=== PATIENT | male | born 1990 | race Caucasian/White ===

== ENCOUNTER 2017-02-11 10:58 | Emergency (ER) | payer BC ==
[~2017-02-11] VITALS: Ht 180.3 cm; Wt 102.0 kg
[~2017-02-11 10:58] MED LIST: OXYC1TAB3 PO
[2017-02-11 11:00] VITALS: TEMP 36.6; Ht 180.3 cm; Wt 102.0 kg
[2017-02-11] MEDS ORDERED: SODIUM CHLORIDE 0.9% 1000ML 1,000 ML IV STA (11:15)
[2017-02-11] MEDS ORDERED: AZITHROMYCIN IV 500 MG in DEXTROSE 5% 250ML 250 ML IV ONE (11:15)
[2017-02-11 11:43] VITALS: O2SAT 98
[2017-02-11 11:49] LABS: HEMATOCRIT 46.3 % (42-52); MEAN CELL VOLUME 84.2 fL (80-100); MEAN CORPUSCULAR HEMOGLOBIN 30.5 pg (25-34); MEAN CORPUSCULAR HGB CONC 36.3 g/dl (32-36); MEAN PLATELET VOLUME 10.7 fL (7.4-10.4); PLATELET COUNT 123 K/uL (130-400); WHITE BLOOD COUNT 7.09 K/uL (4.8-10.8)
[2017-02-11] MEDS ORDERED: LEVO-366 PO (11:51)
[2017-02-11] MEDS ORDERED: GUAISYP4 PO (11:51)
[2017-02-11 12:11] LABS: BASO % 0.7 %; BASO ABS # 0.05 K/uL (0-0.2); COMPLETE YES; IG% 0.1 %; LYMPH % 21.7 %; LYMPH ABS # 1.54 K/uL (1.2-3.4); MONO % 10.6 %; NEUT % 66.9 %
[2017-02-11 12:14] LABS: CREATININE 1.2 mg/dl (0.60-1.40); POTASSIUM 3.3 mmol/L (3.5-5.1)
--- NOTE | 2017-02-11 12:21 | DIAGNOSTIC IMAGING REPORT ---
CHEST 2 VIEWS ROUTINE CLINICAL HISTORY: cough, fever, recently diagnosed with pneumonia COMPARISON STUDY: No previous studies for comparison. FINDINGS: The heart is normal in size. There are nodular right upper lobe pulmonary airspace opacities, likely representing a pneumonia. Films subsequent to treatment are recommended in follow-up.[ No pleural effusions are visualized. IMPRESSION: Nodular right upper lobe pulmonary airspace opacities, likely representing a pneumonia. Films subsequent to treatment are recommended in follow-up. Electronically signed by: Fili Melvin M.D. 02/11/2017 12:20 PM Dictated Date/Time: 02/11/2017 12:19 PM
[2017-02-11] MEDS ORDERED: AZIT500T PO (14:11)
--- NOTE | 2017-02-11 14:12 | EMERGENCY ROOM VISIT NOTE ---
History First contact with patient: 11:08 Chief Complaint: RESPIRATORY PROBLEMS Stated Complaint: PNEUMONIA History of Present Illness The patient is a 26 year old male who presents to the Emergency Room with complaints of pneumonia. The patient states that he started with symptoms of high fever and cough one week ago. He denies any ear pain, sore throat or head congestion. He went to his family doctor on and was diagnosed with pneumonia he thinks they said it was in the right upper lobe. He was placed on Levaquin 500 milligrams daily. The patient has had 4 doses of the Levaquin and has not seen any improvement therefore he went to the [facility] walk-in clinic this morning. He was sent over here because they told him that his pulse ox was low at 77 and that his heart rate was a little fast. The patient denies any history of asthma or any chronic respiratory disease. The patient denies tobacco use. Review of Systems 10 system review was performed and was negative unless stated otherwise history of present illness. Past Medical/Surgical History No significant past medical history Social History Smoking Status: Never Smoker Alcohol Use: occasionally Drug Use: none Marital Status: Housing Status: lives with family Occupation Status: employed Current/Historical Medications Scheduled Levofloxacin (Levaquin), 500 MG PO DAILY Scheduled PRN Guaifenesin/Codeine (Robitussin-Ac Syrup), 10 ML PO Q4H PRN for Cough Allergies Coded Allergies: No Known Allergies (Unverified , 02/11/17) Physical Exam Vital Signs Date Time Temp Pulse Resp B/P (MAP) Pulse Ox O2 Delivery O2 Flow Rate FiO2 02/11/17 11:44 91 18 127/78 97 Room Air 02/11/17 11:43 98 Room Air 02/11/17 11:03 95 Room Air 02/11/17 11:00 36.6 107 18 118/73 95 Room Air Physical Exam PHYSICAL EXAM: Vital Signs were reviewed: Temperature 36.6, blood pressure 118/ 73, pulse 107, respiratory rate 18 Reviewed Nurse's notes and agree. Oxygen saturation is 95 % on room air which is normal . GENERAL: 26-year-old male appears in no acute distress. MENTAL STATUS: Alert, oriented, coherent. EARS: Canals clear. TMs good light reflex, no erythema or fluid level noted. NOSE: Nasal mucosa with moderate erythema engorgement. PHARYNX: No erythema, no edema noted. No exudate noted. Airway is adequate. NECK: Supple, non-tender. No lymphadenopathy noted. LUNGS: Clear to auscultation without wheezes rales or rhonchi. CARDIAC: Regular rate and rhythm without murmur. SKIN: No rashes noted. Medical Decision & Procedures ER Provider Diagnostic Interpretation: CHEST 2 VIEWS ROUTINE CLINICAL HISTORY: cough, fever, recently diagnosed with pneumonia COMPARISON STUDY: No previous studies for comparison. FINDINGS: The heart is normal in size. There are nodular right upper lobe pulmonary airspace opacities, likely representing a pneumonia. Films subsequent to treatment are recommended in follow-up.[ No pleural effusions are visualized. IMPRESSION: Nodular right upper lobe pulmonary airspace opacities, likely representing a pneumonia. Films subsequent to treatment are recommended in follow-up. Electronically signed by: Fili Melvin M.D. 02/11/2017 12:20 PM Laboratory Results 02/11/17 11:30 Red Blood Count 5.50, Mean Corpuscular Volume 84.2, Mean Corpuscular Hemoglobin 30.5, Mean Corpuscular Hemoglobin Concent 36.3, Mean Platelet Volume 10.7, Neutrophils (%) (Auto) 66.9, Lymphocytes (%) (Auto) 21.7, Monocytes (%) (Auto) 10.6, Eosinophils (%) (Auto) 0.0, Basophils (%) (Auto) 0.7, Neutrophils # (Auto ) 4.74, Lymphocytes # (Auto) 1.54, Monocytes # (Auto) 0.75, Eosinophils # (Auto ) 0.00, Basophils # (Auto) 0.05 02/11/17 11:30 Test 02/11/17 11:30 White Blood Count 7.09 K/uL (4.8-10.8) Red Blood Count 5.50 M/uL (4.7-6.1) Hemoglobin 16.8 g/dL (14.0-18.0) Hematocrit 46.3 % (42-52) Mean Corpuscular Volume 84.2 fL (80-100) Mean Corpuscular Hemoglobin 30.5 pg (25-34) Mean Corpuscular Hemoglobin Concent 36.3 g/dl (32-36) Platelet Count 123 K/uL (130-400) Mean Platelet Volume 10.7 fL (7.4-10.4) Neutrophils (%) (Auto) 66.9 % Lymphocytes (%) (Auto) 21.7 % Monocytes (%) (Auto) 10.6 % Eosinophils (%) (Auto) 0.0 % Basophils (%) (Auto) 0.7 % Neutrophils # (Auto) 4.74 K/uL (1.4-6.5) Lymphocytes # (Auto) 1.54 K/uL (1.2-3.4) Monocytes # (Auto) 0.75 K/uL (0.11-0.59) Eosinophils # (Auto) 0.00 K/uL (0-0.5) Basophils # (Auto) 0.05 K/uL (0-0.2) RDW Standard Deviation 39.0 fL (36.4-46.3) RDW Coefficient of Variation 12.6 % (11.5-14.5) Immature Granulocyte % (Auto) 0.1 % Immature Granulocyte # (Auto) 0.01 K/uL (0.00-0.02) Anion Gap 16.0 mmol/L (3-11) Est Creatinine Clear Calc Drug Dose 113.4 ml/min Estimated GFR () 96.1 Estimated GFR (Non- 83.0 BUN/Creatinine Ratio 15.0 (10-20) Calcium Level 9.0 mg/dl (8.5-10.1) Date/Time Source Procedure Growth Status 02/11/17 12:45 Stool C.difficile Toxin B Gene (PCR) - Final No C. difficile toxin B gene detected Complete Medications Administered Medications (Trade) Dose Ordered Sig/[place] Route Start Time Stop Time Status Last Admin Dose Admin Sodium Chloride 1,000 ml @ 999 mls/hr Q1H1M STAT IV 02/11/17 11:15 02/11/17 12:15 DC 02/11/17 11:42 999 MLS/HR Azithromycin 500 mg/Dextrose 255 ml @ 125 mls/hr ONE ONCE IV 02/11/17 11:15 02/11/17 13:17 DC 02/11/17 11:42 125 MLS/HR ED Course The patient was evaluated. The patient was placed on continuous pulse ox. IV access was obtained. The patient was given 1 L normal saline wide-open. CBC and differential, renal profile, blood cultures 2 were obtained. The patient was given Zithromax 500 mg IV. Chest x-ray was ordered and interpreted by the radiologist and myself as above with right upper lobe pneumonia. Labs are reviewed and were unremarkable. Blood cultures are pending. The patient then later told me that he had increased diarrhea since being on the Levaquin therefore a C. difficile stool toxins was ordered and was negative. The patient was given an albuterol inhaler while in the emergency room. He'll do 2 puffs every 4 hours for 5 days then 2 puffs every 4 hours as needed. The patient was reevaluated and was discharged home in stable condition.. Medical Decision Differential diagnosis include sepsis, viral pneumonia, bacterial pneumonia, bronchitis Impression Primary Impression: Pneumonia Departure Information Dispostion Home / Self-Care Condition GOOD Prescriptions Azithromycin (ZITHROMAX) 500 Mg Tab 1 TAB PO DAILY for 4 Days, #4 TAB Prov: Samaria Winter PA-C 02/11/17 Referrals No Doctor, Assigned (PCP) Forms HOME CARE DOCUMENTATION FORM, IMPORTANT VISIT INFORMATION, WORK / SCHOOL INSTRUCTIONS Patient Instructions ED Pneumonia Adult, [facility] Additional Instructions Discontinue the Levaquin. Take Zithromax daily starting tomorrow. May continue [id number] symptomatic treatment. Robitussin for cough. Use albuterol inhaler 2 puffs every 4 hours for 5 days then 2 puffs every 4 hours as needed. Follow-up with your family doctor on Sunday for reevaluation. Off work for 2 days. If symptoms worsen in the interim, return to ER. Work Instructions Return To Work: 3 days Problem Qualifiers Primary Impression: Pneumonia Pneumonia type: due to unspecified organism Laterality: right Lung location : upper lobe of lung Qualified Codes: J18.1 - Lobar pneumonia, unspecified organism
[2017-02-11 14:35] VITALS: BP 114/72; PULSE 91; O2SAT 97
[2017-02-11] MEDS ORDERED: ALBUTEROL HFA 8 GM INHALER INH SCH (15:00)
== END 2017-02-11 14:36 | disposition home or self-care (01) ==
LOC: C.EDB 11:00
DX: J18.1 Lobar pneumonia, unspecified organism (principal); Z79.2 Long term (current) use of antibiotics